=== PATIENT | female | born 1980 | race Caucasian/White ===

== ENCOUNTER 2017-07-29 10:28 | Day surgery (SDC) | payer SELFPAY ==
[2017-07-29] VITALS (7 sets, daily range): BP systolic 105–115; BP diastolic 66–73; PULSE 80–97; RESP 16; TEMP 37.4–37.9; O2SAT 99–100; BMI 23.8
[2017-07-29 11:23] LABS: Hematocrit 37.7 % (37-47); Hemoglobin 12.8 g/dl (12.0-15.0); Mean Corpuscular Hgb 30.8 pg (27.0-32.0); Mean Corpuscular Volume 90.6 fL (81-99); Mean Platelet Vol. 9.7 fl (6.2-12.0); Platelet Count 252 K/mm3 (150-450); RBC Distribution Width CV 12.9 % (11.6-14.6); RBC Distribution Width SD 41.9 fl (35.1-43.9); Red Blood Count 4.16 M/mm3 (4.2-5.4); Scan Indicated on CBC? Y/N NO; White Blood Count 3.8 K/mm3 (4.4-11.0)
[2017-07-29 11:50] LABS: Prothrombin Time (Protime)PT. 13.2 SECONDS (11.7-14.9)
[2017-07-29 11:51] LABS: Partial Thromboplast Time 30.4 Seconds (24.1-36.2)
--- NOTE | 2017-07-29 12:00 | POC_PTH ---
PATIENT: TOMAS GRIFFIN LOC: [facility] [place] U#:[id number] AGE/SX: 37/F ROOM: RE07/29/[address]: Dr. Vera Grover MD : 1980 BED: DIS: 07/29/2017 SPEC #: [id number] RECD: 08/01/17 10:17 STATUS: KELLEY JAZZY #: [id number] ADEOLA: 07/29/17 12:[address]: Vera Vee DEPT: SURGICAL PATHOLOGY RECD BY: Christoph Nunes ENTERED: 08/01/17 13:19 SP TYPE: PROD CONC OTHR DR: Dr. Isaac Neely MD Tissues: Product of conception, NOS Procedures: Surgery Specimen Level IV HEADER OPERATION: Dilation and curettage, suction PRE-OP DIAGNOSIS: Incomplete TISSUE SUBMITTED: Products of conception MICROSCOPIC DIAGNOSIS Products of conception: Decidua, gestational endometrium and immature chorionic villi (products of conception). SJ:filemon 08/02/17 MICROSCOPIC DESCRIPTION Slides are reviewed. GROSS DESCRIPTION Received in fixative is one container labeled with the patient's name and designated products of conception. The specimen consists of multiple irregular fragments of red-rodriguez soft tissue that in aggregate measure 7 x 5 x 0.5 cm. parts are not grossly recognized. Rn Community portions are submitted in one cassette. / AM:filemon 08/01/17 TC:5 CPT: 84256
--- NOTE | 2017-07-29 13:20 | PCM.DC.D&C ---
Discharge Diet: No Restrictions Discharge Activity: Return to Normal Activity, May Shower May resume sexual activity in: 4 weeks Call your doctor if your incision/area has: Sudden Increased Bleeding Call your doctor if you observe: Fever of 101 or Higher, Inability to urinate, Inability to have a bowel movement, Using more than one pad per hour, Shortness of breath, Chest pain, Calf discomfort, Uncontrolled pain Allergies/Adverse Reactions: Allergies No Known Allergies Allergy (Verified 07/29/17 10:51) Medications to take at Discharge Ibuprofen 3 tab PO TID PRN #40 tab 07/29/17 Oxycodone [Oxyir] 5 mg PO Q6H PRN PRN 2 Days #5 tablet 07/29/17 Pnv No.122/Iron/Folic Acid [ Multi Tablet] 1 each PO DAILY 07/29/17 The following prescriptions were given: Oxycodone [Oxyir] 5 mg PO Q6H PRN PRN 2 Days #5 tablet PRN Reason: Severe Pain (6-10/10) Ibuprofen 3 tab PO TID PRN #40 tab PRN Reason: Pain Primary Care Physician: Isaac Neely MD [Primary Care Provider] - Please Follow Up With: Vera Tuttle MD When: 2-4 weeks
--- NOTE | 2017-08-01 07:21 | PCM.OPRPT ---
Problem List (1) Incomplete without complications Status: Acute Report of Operation Date of Procedure: 07/29/17 Pre-Operative Diagnosis: incomplete spontaneous Post-Operative Diagnosis: incomplete spontaneous Surgery/Procedure Performed:: Suction dilation and curettage Type of Anesthesia:: Local MAC Anesthesiologist: Tomy Pruitt CRNA Specimen's removed: products of conception Estimated Blood Loss (mL): 10 Fluids Replaced: 600 ml Description of Procedure: Indications: Ms. Turcios is a 37 year old 6 para 3023 s/p recent incomplete with persistent vaginal bleeding. She failed medical management and presents for schedule dilation and curettage. Risks, benefits, indications of procedure were reviewed at length. Procedure: The patient was brought to the OR and sign in performed. She was placed in the dorsal supine position and induced under MAC. She was repositioned into dorsolithotomy and examination under anesthesia was performed. The perineum and vagina were prepped and draped in sterile fashion. A weighted speculum was placed into the vagina and the cervix grasped at the anterior cervical lip. One percent lidocaine to a total of 20cc was administered by paracervical block. The cervix was up dilated and suction curettage performed with a 7mm curved curette until no further retrieval of products of conception. Sharp curettage was subsequently performed and again followed by suction curettage with no further tissue retrieval. The procedure was complete. The tenaculum was removed from the cervix and the tenaculum site hemostatic following compression. The speculum was removed from the vagina. The patient was awakened and transferred to the recovery room without complication. Sponge counts were correct x 2. - Complications None - Admit VTE Documentation VTE Present on Admission: No VTE Mechan Device Prophylaxis: [facility] [place] VTE Pharm Prophylaxis ordered?: No
== END 2017-07-29 14:50 | disposition home or self-care (01) ==
LOC: SDC 10:31 → AC 10:34
PROVIDERS: Anesthesiology; Family Provider Family Medicine; PCP Family Medicine; Visit Provider Obstetrics & Gynecology
PROC: (CPT 59812; principal; 2017-07-29 11:45)
DX: O03.4 Incomplete spontaneous abortion without complication (principal)
CPT/HCPCS: 59812; 85027; 85610; 85730; 86850; 86900; 88305; J7120